=== PATIENT | male | born 1985 | race African-American/Black ===

== ENCOUNTER 2020-08-16 10:57 | Emergency (ER) | payer OTHER ==
[~2020-08-16] VITALS: Ht 188 cm; Wt 86.2 kg
--- NOTE | 2020-08-16 11:12 | NUR ---
THE PATIENT BIBS FOR C/O R HIP PAIN SINCE APRIL, LOWER BACK PAIN R/T RLE X 2 WEEKS. RATES PAINS 6/10. DENIES NUMBNESS/TINGLING IN THE EXTREMITIES. WILL CONTINUE TO MONITOR THE PATIENT.
[2020-08-16] MEDS ORDERED: CAPS42.514 TP (11:26)
[2020-08-16] MEDS ORDERED: IBUP-1955 PO (11:26)
[2020-08-16] MEDS ORDERED: KETOROLAC TROMETHAMINE INJ 60 MG/2 ML VIAL IM ONE (11:30)
[2020-08-16] MEDS ORDERED: KETOROLAC TROMETHAMINE INJ 30 MG/ML VIAL ONE (11:34)
[2020-08-16 11:45] VITALS: BP 127/84
--- NOTE | 2020-08-16 11:45 | NUR ---
Patient discharged to home in stable condition. Written and verbal after care instructions given. Patient verbalizes understanding of instruction.
== END 2020-08-16 11:46 | disposition home or self-care (01) ==
LOC: ER 11:07
DX: M25.551 Pain in right hip (principal); M54.41 Lumbago with sciatica, right side; Z98.890 Other specified postprocedural states
CPT/HCPCS: 96372; 99283; J1885

== ENCOUNTER 2020-08-29 11:33 | Emergency (ER) | payer OTHER ==
[~2020-08-29] VITALS: Ht 188 cm; Wt 89.8 kg
[~2020-08-29 11:33] MED LIST: CAPS42.514 TP; IBUP-1955 PO
[2020-08-29 11:46] VITALS: BP 142/71
--- NOTE | 2020-08-29 11:51 | NUR ---
DR. ROBLES AT BEDSIDE FOR EVAL.
[2020-08-29] MEDS ORDERED: IBUP-1957 PO (11:55)
[2020-08-29] MEDS ORDERED: KETOROLAC TROMETHAMINE INJ 30 MG/ML VIAL ONE (11:59)
[2020-08-29] MEDS ORDERED: KETOROLAC TROMETHAMINE INJ 60 MG/2 ML VIAL IM ONE (12:00)
--- NOTE | 2020-08-29 12:36 | NUR ---
Patient discharged to home in stable condition. Written and verbal after care instructions given. Patient verbalizes understanding of instruction.
== END 2020-08-29 12:37 | disposition home or self-care (01) ==
LOC: ER 11:35
DX: M54.41 Lumbago with sciatica, right side (principal); Z98.890 Other specified postprocedural states
CPT/HCPCS: 96372; 99283; J1885

== ENCOUNTER 2020-09-17 15:22 | Emergency (ER) | payer OTHER ==
[~2020-09-17] VITALS: Ht 188 cm; Wt 89.8 kg
[~2020-09-17 15:22] MED LIST changes: +IBUP-1957 PO
[2020-09-17 15:35] VITALS: BP 142/83
--- NOTE | 2020-09-17 16:19 | NUR ---
MULU ALMAGUER AT BEDSIDE FOR EVAL.
[2020-09-17] MEDS ORDERED: DEXAMETHASONE SOD PHOSPHATE 10 MG/ML VIAL IM ONE (16:30)
[2020-09-17] MEDS ORDERED: KETOROLAC TROMETHAMINE INJ 60 MG/2 ML VIAL IM ONE (16:30)
[2020-09-17] MEDS ORDERED: DEXAMETHASONE SOD PHOSPHATE 10 MG/ML VIAL ONE (16:33)
[2020-09-17] MEDS ORDERED: KETOROLAC TROMETHAMINE INJ 30 MG/ML VIAL ONE (16:33)
--- NOTE | 2020-09-17 16:42 | NUR ---
URINE SPECIMEN COLLECTED AND SENT TO LAB.
--- NOTE | 2020-09-17 16:44 | NUR ---
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
[2020-09-17 16:47] LABS: BILIRUBIN,URINE SMALL (NEGATIVE); COLOR,URINE DARK YELLOW (YELLOW); LEUKOCYTE ESTERASE ,URINE Negative (NEGATIVE); NITRITE, URINE Negative (NEGATIVE); PROTEIN,URINE Trace mg/dl (NEGATIVE); UGLUCOSE Negative (NEGATIVE); UROBILINOGEN,URINE 0.2 EU/dL (0.2)
[2020-09-17 17:08] LABS: RBC,URINE 0-2 /HPF (0-2); WBC,URINE 0-2 /HPF (0-3)
[2020-09-17 17:09] LABS: BACTERIA,URINE None seen /HPF (None Seen); SQUAMOUS EPITHELIAL CELL,UR Few /HPF (None Seen)
[2020-09-17] MEDS ORDERED: TRAM50TA2 PO (17:45)
[2020-09-17] MEDS ORDERED: IBUP-1957 PO (17:45)
--- NOTE | 2020-09-17 17:50 | NUR ---
Patient discharged to home in stable condition. Written and verbal after care instructions given. Patient verbalizes understanding of instruction.
== END 2020-09-17 17:51 | disposition home or self-care (01) ==
LOC: ER 15:35
DX: M54.41 Lumbago with sciatica, right side (principal); K40.90 Unilateral inguinal hernia, without obstruction or gangrene, not specified as recurrent; Z98.890 Other specified postprocedural states; Z60.2 Problems related to living alone
CPT/HCPCS: 76870; 81001; 87086; 96372 ×2; 99284; J1100; J1885

== ENCOUNTER 2020-12-10 17:34 | Emergency (ER) | payer OTHER ==
[~2020-12-10] VITALS: Ht 190.5 cm; Wt 89.8 kg
[~2020-12-10 17:34] MED LIST changes: +CAPS42.513 TP; -CAPS42.514 TP; +TRAM50TA2 PO
[2020-12-10 17:43] VITALS: BP 131/71
[2020-12-10] MEDS ORDERED: DOXY100C2 PO (17:50)
[2020-12-10] MEDS ORDERED: LIDOCAINE /MPF 1% VIAL 5 ML VIAL ONE (17:55)
[2020-12-10] MEDS ORDERED: CEFTRIAXONE 500 MG VIAL ONE (17:55)
[2020-12-10] MEDS ORDERED: CEFTRIAXONE 500 MG VIAL IM ONE (18:00)
--- NOTE | 2020-12-10 18:00 | NUR ---
urine collected and sent to lab.
--- NOTE | 2020-12-10 18:35 | NUR ---
Patient discharged to home in stable condition. Written and verbal after care instructions given. Patient verbalizes understanding of instruction.
== END 2020-12-10 18:35 | disposition home or self-care (01) ==
LOC: ER 17:37
DX: A74.9 Chlamydial infection, unspecified (principal); Z98.890 Other specified postprocedural states; Z60.2 Problems related to living alone; Z79.899 Other long term (current) drug therapy
CPT/HCPCS: 87491; 87591; 96372; 99283; J0696; J3490